=== PATIENT | female | born 1960 | race Caucasian/White ===

== ENCOUNTER → 2018-09-29 | Outpatient (CLI) | payer MEDICARE, BC ==
[2018-09-29 13:44] LABS: COMPLEMENT C4 31 MG/DL (10-40); RHEUMATOID FACTOR QUANT < 10.0 IU/ML (<15.0)
== END ==
LOC: M SMT 10:10
PROVIDERS: ATTEND Allergy & Immunology Allergy
DX: R22.0 Localized swelling, mass and lump, head (principal)